=== PATIENT | female | born 1995 | race Caucasian/White ===

== ENCOUNTER 2017-10-30 04:35 | Emergency (ER) | payer OTHER ==
[~2017-10-30] VITALS: Ht 165.1 cm; Wt 61.2 kg
[~2017-10-30 04:35] MED LIST: BACTRIM DS TAB1 EACH PO; CIPROFLOXACIN500 M1 PO; CLEOCIN HCL300 MG PO; IBUPROFEN 600600 M1 PO; KEFLEX500 M1 PO; NORCO 5-325 TA1 EACH PO; PRENATAL PO; ULTRAM 50MG TAB50 MG PO
[2017-10-30 05:15] LABS: HEMATOCRIT 44.3 % (37.0-47.0); HEMOGLOBIN 14.5 gm/dL (12.0-15.0); MCH 27.8 pg (26.0-34.0); MCHC 32.7 g/dL (28.0-37.0); PLATELET COUNT 309 thou/uL (150-400); RBC 5.21 mil/uL (4.20-5.00); RDW 13.2 % (10.5-14.5); WBC 12.3 thou/uL (4.0-11.0)
[2017-10-30 05:16] LABS: MANUAL DIFF YES
[2017-10-30 05:17] LABS: URINE BILIRUBIN NEGATIVE (Negative); URINE BLOOD TRACE (Negative); URINE COLOR YELLOW; URINE GLUCOSE-RANDOM* NEGATIVE (Negative); URINE KETONES NEGATIVE (Negative); URINE NITRITE NEGATIVE (Negative); URINE PROTEIN (DIPSTICK) NEGATIVE (Negative); URINE SPECIFIC GRAVITY >= 1.030 (1.005-1.035); URINE UROBILINOGEN 0.2 E.U./dl (0.2-1.0)
[2017-10-30 05:22] LABS: BACTERIA 1-9 Few /HPF (None Seen); CASTS None Seen /LPF (None Seen); CRYSTALS None Seen /LPF (None Seen); SQUAMOUS 4-10 Moderate /LPF (0-3); URINE RBC None Seen /HPF (0-2)
[2017-10-30 05:25] LABS: CALCIUM 9.8 mg/dL (8.5-10.1); CREATININE 0.9 mg/dL (0.6-1.0); POTASSIUM 3.9 mmol/L (3.5-5.1)
[2017-10-30 05:31] LABS: ALBUMIN 4.3 g/dL (3.4-5.0); DIRECT BILIRUBIN 0.1 mg/dL (<0.1-0.3); TOTAL BILIRUBIN 0.5 mg/dL (<0.1-1.0); TOTAL PROTEIN 8.1 g/dL (6.4-8.2)
[2017-10-30 05:45] LABS: ABSOLUTE NEUTROPHILS 11.1 thou/uL (1.4-8.2); TOTAL CELL COUNT 100
[2017-10-30] MEDS ORDERED: PYRIDIUM200 MG PO (06:23)
== END 2017-10-30 18:06 | disposition home or self-care (01) ==
LOC: ER 04:35
PROVIDERS: Emergency Medicine
DX: R10.30 Lower abdominal pain, unspecified (principal); R30.0 Dysuria; R11.2 Nausea with vomiting, unspecified; D72.829 Elevated white blood cell count, unspecified